=== PATIENT | male | born 1950 | race Caucasian/White ===

== ENCOUNTER 2017-02-18 17:29 | Emergency (ER) | payer OTHER ==
[~2017-02-18] VITALS: Ht 185.4 cm; Wt 134.0 kg
[~2017-02-18 17:29] MED LIST: CANA100T PO; GLIP10TA6 PO; LISI-363 PO; MECL-62 PO; METF500 PO
[2017-02-18 17:36] VITALS: BP 199/84; PULSE 90; RESP 18; TEMP 98; O2SAT 95
[2017-02-18] MEDS ORDERED: CANA100T PO (17:49)
[2017-02-18] MEDS ORDERED: METF500T PO (17:49)
[2017-02-18] MEDS ORDERED: GLIP10TA6 PO (17:49)
[2017-02-18] MEDS ORDERED: LISI-515 PO (17:49)
[2017-02-18] MEDS ORDERED: CLINDAMYCIN INJ 600 MG in SODIUM CHLORIDE 0.9% INJ 100 ML IV ONE (18:15)
[2017-02-18] MEDS ORDERED: MORPHINE SULFATE 8 MG/ML INJ IV PUSH ONE ×2 (18:15→19:45)
--- NOTE | 2017-02-18 18:18 | PD ---
HPI Chief Complaint: Skin Problem Time Seen by Provider: 17:45 Travel History International Travel<30 days: No Contact w/Intl Traveler<30days: No Traveled to known affect area: No History of Present Illness HPI 66yo M with PMH of COPD and DM presents to the ED with c/o pain and swelling in right scrotum. States that it was draining for a few weeks and then stopped draining and for the last few days, became more swollen and very painful. It is also red. Denies any fever, chest pain, sob, n/v, abdominal pain, focal weakness or numbness. Pt is morbidly obese and wheezing but states that he is not sob and does not want treatment. PFSH Past Medical History Asthma: No Blood Disorders: No Anxiety: No Depression: No Heart Rhythm Problems: Yes Cancer: No Cardiovascular Problems: Yes High Cholesterol: Yes Chemotherapy: No Chest Pain: No Congestive Heart Failure: No COPD: No Diabetes: Yes Patient Takes Glucophage: Yes (02-18-17) Diminished Hearing: No Endocrine: Yes Gastrointestinal Disorders: No Genitourinary: No Hypertension: Yes Immune Disorder: No Implanted Vascular Access Dvce: No Musculoskeletal: Yes (SOME PAINS IN JOINTS) Neurologic: Yes (NUMBNESS IN [place]) Psychiatric: No Reproductive: No Respiratory: Yes (COPD) Immunizations Current: No Radiation Therapy: No Sleep Apnea: No Thyroid Disease: No Tetanus Vaccination: > 5 Years Influenza Vaccination: No Past Surgical History Other Surgery: Yes (POLYPS/SOME INTESTINE REMOVED) Social History Alcohol Use: Yes (4 8 OUNCES) Tobacco Use: Yes (4 DAILY) Substance Use: No Allergies-Medications (Allergen,Severity, Reaction): Coded Allergies: No Known Allergies (Unverified , 02/18/17) Reported Meds & Prescriptions Reported Meds & Active Scripts Active Tylenol (Acetaminophen) 325 Mg Tab 650 Mg PO Q6H PRN Clindamycin (Clindamycin HCl) 300 Mg Cap 300 Mg PO Q6H 7 Days Reported Metformin (Metformin HCl) 500 Mg Tab 500 Mg PO BIDPC Lisinopril 20 Mg Tab 20 Mg PO BID Glipizide 10 Mg Tab 10 Mg PO BIDAC Take 30 minutes before a meal Invokana (Canagliflozin) 100 Mg Tab 100 Mg PO DAILY Take before 1st meal of day. Review of Systems Except as stated in HPI: all other systems reviewed are Neg Physical Exam Narrative GENERAL: 66yo M in moderate distress. SKIN: Focused skin assessment warm/dry. HEAD: Atraumatic. Normocephalic. EYES: Pupils equal and round. No scleral icterus. No injection or drainage. ENT: No nasal bleeding or discharge. Mucous membranes pink and moist. NECK: Trachea midline. No JVD. CARDIOVASCULAR: Regular rate and rhythm. No murmur appreciated. RESPIRATORY: No accessory muscle use. End expiratory wheezing. GASTROINTESTINAL: Abdomen soft, non-tender, nondistended. : +Induration in right scrotum about 6cm by 6cm. +TTP. +Fluctuance. No penile rash. No crepitus. MUSCULOSKELETAL: No obvious deformities. No clubbing. No cyanosis. No edema. NEUROLOGICAL: Awake and alert. No obvious cranial nerve deficits. Motor grossly within normal limits. Normal speech. PSYCHIATRIC: Appropriate mood and affect; insight and judgment normal. Data Data Last Documented VS Vital Signs Date Time Temp Pulse Resp B/P (MAP) Pulse Ox O2 Delivery O2 Flow Rate FiO2 02/18/17 19:58 82 20 110/50 (70) 95 02/18/17 17:36 98.0 Orders Orders Complete Blood Count With Diff (02/18/17 18:09) Basic Metabolic Panel (Bmp) (02/18/17 18:09) Lactic Acid Sepsis Protocol (02/18/17 18:09) Prothrombin Time / Inr (Pt) (02/18/17 18:09) Act Partial Throm Time (Ptt) (02/18/17 18:09) Morphine Inj (Morphine Inj) (02/18/17 18:15) Blood Culture (02/18/17 18:09) Clindamycin Inj (Cleocin Inj) (02/18/17 18:15) Lidocaine 1% Inj (50 Ml) (Xylocaine 1% I (02/18/17 19:15) Morphine Inj (Morphine Inj) (02/18/17 19:45) Labs Laboratory Tests Test 02/18/17 18:26 White Blood Count 10.1 TH/MM3 Red Blood Count 4.80 MIL/MM3 Hemoglobin 15.4 GM/DL Hematocrit 46.2 % Mean Corpuscular Volume 96.1 FL Mean Corpuscular Hemoglobin 32.1 PG Mean Corpuscular Hemoglobin Concent 33.4 % Red Cell Distribution Width 12.0 % Platelet Count 175 TH/MM3 Mean Platelet Volume 7.6 FL Neutrophils (%) (Auto) 71.7 % Lymphocytes (%) (Auto) 15.0 % Monocytes (%) (Auto) 6.9 % Eosinophils (%) (Auto) 5.2 % Basophils (%) (Auto) 1.2 % Neutrophils # (Auto) 7.3 TH/MM3 Lymphocytes # (Auto) 1.5 TH/MM3 Monocytes # (Auto) 0.7 TH/MM3 Eosinophils # (Auto) 0.5 TH/MM3 Basophils # (Auto) 0.1 TH/MM3 CBC Comment AUTO DIFF Differential Comment AUTO DIFF CONFIRMED Prothrombin Time 10.8 SEC Prothromb Time International Ratio 1.0 RATIO Activated Partial Thromboplast Time 31.2 SEC Blood Urea Nitrogen 15 MG/DL Creatinine 0.90 MG/DL Random Glucose 172 MG/DL Calcium Level 9.2 MG/DL Sodium Level 131 MEQ/L Potassium Level 4.3 MEQ/L Chloride Level 95 MEQ/L Carbon Dioxide Level 28.5 MEQ/L Anion Gap 8 MEQ/L Estimat Glomerular Filtration Rate 85 ML/MIN Lactic Acid Level 1.3 mmol/L [facility] Medical Decision Making Medical Screen Exam Complete: Yes Emergency Medical Condition: Yes Differential Diagnosis Scrotal abscess Narrative Course 66yo M with right scrotal abscess. Labs reviewed, no leukocytosis. Glucose 172. Mild hyponatremia. Lactic acid 1.3. Pt given morphine 6mg IV and clindamycin 600mg IV. I wanted to do CT a/p to evaluate if the infection is deeper or any other serious types of infection but pt is refusing CT or any other imaging. Pt just wants the abscess drained. I&D was performed and large amounts of purulent discharge expressed. Another 6mg morphine given during procedure. Instructed pt to return in 2 days for packing removal and wound check. Return precautions given. Procedures Procedure Narrative INCISION AND DRAINAGE OF ABSCESS: The area was prepped and was sterilely draped. A subcutaneous wheal of 1 % Xylocaine a total number 4 mL was used to anesthetize the area properly. A number 11 scalpel was used to make a 1 -cm incision across the area of the abscess. The abscess was drained, complex loculations were broken down, and irrigated with normal saline. Cultures were obtained. Quarter inch iodoform packing was placed in the wound. Sterile dressing applied. Patient advised to have packing removed in two days. Diagnosis Primary Impression: Scrotal abscess Patient Instructions: General Instructions Departure Forms: Tests/Procedures Additional Instructions: Please return to the ED in 2 days for wound check and packing removal. Return earlier if symptoms worsen. Med/Other Pt SpecificInfo: Prescription(s) given Scripts Acetaminophen (Tylenol) 325 Mg Tab 650 MG PO Q6H Y for PAIN SCALE 1 TO 4, #20 TAB 0 Refills Prov: Rita Huddleston DO 02/18/17 Clindamycin (Clindamycin) 300 Mg Cap 300 MG PO Q6H for Infection for 7 Days, #28 CAP 0 Refills Prov: Rita Huddleston DO 02/18/17 Disposition: 01 DISCHARGE HOME Condition: Stable Rita Huddleston DO Feb 18, 2017 18:18
[2017-02-18 18:36] LABS: AUTOMATED NEUTROPHIL # 7.3 TH/MM3 (1.8-7.7); BASOPHIL # 0.1 TH/MM3 (0-0.2); BASOPHIL % 1.2 % (0.0-2.0); EOSINOPHIL # 0.5 TH/MM3 (0-0.4); EOSINOPHIL % 5.2 % (0.0-4.0); HEMATOCRIT 46.2 % (39.0-51.0); LYMPHOCYTE # 1.5 TH/MM3 (1.0-4.8); MEAN CELL VOLUME 96.1 FL (80.0-100.0); MEAN CORPUSCULAR HEMOGLOBIN 32.1 PG (27.0-34.0); MEAN CORPUSCULAR HGB CONC 33.4 % (32.0-36.0); MONO % 6.9 % (0.0-8.0); NEUT % 71.7 % (16.0-70.0); PLATELET COUNT 175 TH/MM3 (150-450); WHITE BLOOD COUNT 10.1 TH/MM3 (4.0-11.0)
[2017-02-18 18:45] LABS: POTASSIUM 4.3 MEQ/L (3.5-5.1)
[2017-02-18 18:47] LABS: HEMO FLAGS AUTO DIFF
[2017-02-18 18:48] LABS: BICARBONATE 28.5 MEQ/L (21.0-32.0)
[2017-02-18 18:49] LABS: APTT (PATIENT) 31.2 SEC (24.3-30.1); PROTHROMBIN TIME - PATIENT 10.8 SEC (9.8-11.6)
[2017-02-18 19:04] LABS: SCAN/DIFF AUTO DIFF CONFIRMED
[2017-02-18] MEDS ORDERED: LIDOCAINE HCL 1% 50 ML VIAL INFIL ONE (19:15)
[2017-02-18 19:43] VITALS: RESP 20
[2017-02-18] MEDS ORDERED: CLIN1CAP6 PO (19:49)
[2017-02-18] MEDS ORDERED: TYLE325T PO (19:49)
[2017-02-18 19:58] VITALS: BP 110/50
== END 2017-02-18 20:08 | disposition home or self-care (01) ==
LOC: PHED 17:29
DX: N49.2 Inflammatory disorders of scrotum (principal); E78.00 Pure hypercholesterolemia, unspecified; I10 Essential (primary) hypertension; J44.9 Chronic obstructive pulmonary disease, unspecified; E11.9 Type 2 diabetes mellitus without complications
CPT/HCPCS: 10061; 80048; 83605; 85025; 85610; 85730; 87040; 96365; 96375; 96376; 99283; J2270

== ENCOUNTER 2017-02-20 15:12 | Emergency (ER) | payer OTHER ==
[~2017-02-20] VITALS: Ht 185.4 cm; Wt 133.7 kg
[~2017-02-20 15:12] MED LIST changes: +CLIN1CAP6 PO; -LISI-363 PO; +LISI-515 PO; -MECL-62 PO; -METF500 PO; +METF500T PO; +TYLE325T PO
[2017-02-20 15:19] VITALS: BP 118/75; PULSE 91; RESP 18; TEMP 98.3; O2SAT 97
--- NOTE | 2017-02-20 16:12 | PD ---
HPI Chief Complaint: Wound/Suture/Staple Re-Check Time Seen by Provider: 15:37 Travel History International Travel<30 days: No Contact w/Intl Traveler<30days: No Traveled to known affect area: No History of Present Illness HPI 66-year-old male presents to the emergency room for packing removal. Patient had packing placed in a scrotal abscess after incision and drainage in the emergency room 2 days ago. He was discharged with clindamycin and has been taking it appropriately. States his pain is well-controlled with Tylenol. States he has significantly less pain and swelling than he did 2 days ago. He denies fever, chills, nausea, vomiting. PFSH Past Medical History Asthma: No Blood Disorders: No Anxiety: No Depression: No Heart Rhythm Problems: Yes Cancer: No Cardiovascular Problems: Yes High Cholesterol: Yes Chemotherapy: No Chest Pain: No Congestive Heart Failure: No COPD: No Diabetes: Yes Patient Takes Glucophage: Yes Diminished Hearing: No Endocrine: Yes Gastrointestinal Disorders: No Genitourinary: No Hypertension: Yes Immune Disorder: No Implanted Vascular Access Dvce: No Musculoskeletal: Yes (SOME PAINS IN JOINTS) Neurologic: Yes (NUMBNESS IN [place]) Psychiatric: No Reproductive: No Respiratory: Yes (COPD) Immunizations Current: No Radiation Therapy: No Sleep Apnea: No Thyroid Disease: No ?: Not Past Surgical History Other Surgery: Yes (POLYPS/SOME INTESTINE REMOVED) Social History Alcohol Use: Yes (4 8 OUNCES) Tobacco Use: Yes (4 DAILY) Substance Use: No Allergies-Medications (Allergen,Severity, Reaction): Coded Allergies: No Known Allergies (Unverified , 02/20/17) Reported Meds & Prescriptions Reported Meds & Active Scripts Active Tylenol (Acetaminophen) 325 Mg Tab 650 Mg PO Q6H PRN Clindamycin (Clindamycin HCl) 300 Mg Cap 300 Mg PO Q6H 7 Days Reported Metformin (Metformin HCl) 500 Mg Tab 500 Mg PO BIDPC Lisinopril 20 Mg Tab 20 Mg PO BID Glipizide 10 Mg Tab 10 Mg PO BIDAC Take 30 minutes before a meal Invokana (Canagliflozin) 100 Mg Tab 100 Mg PO DAILY Take before 1st meal of day. Review of Systems Except as stated in HPI: all other systems reviewed are Neg Physical Exam Narrative GENERAL: Well-nourished, well-developed male in no acute distress. Afebrile. Ambulatory. SKIN: Focused skin assessment warm/dry. HEAD: Normocephalic. EYES: No scleral icterus. No injection or drainage. NECK: Supple, trachea midline. No JVD or lymphadenopathy. CARDIOVASCULAR: Regular rate and rhythm without murmurs, gallops, or rubs. RESPIRATORY: Breath sounds equal bilaterally. No accessory muscle use. GENITOURINARY: Examined in the presence of a nurse. Testes descended bilaterally without evidence of rotation. There is mild edema of the right, lateral scrotum with packing in place. There is moderate purulent drainage and tenderness to palpation of the area. No surrounding erythema. Data Data Last Documented VS Vital Signs Date Time Temp Pulse Resp B/P (MAP) Pulse Ox O2 Delivery O2 Flow Rate FiO2 02/20/17 15:19 98.3 91 18 118/75 (89) 97 MDM Medical Decision Making Medical Screen Exam Complete: Yes Emergency Medical Condition: Yes Medical Record Reviewed: Yes Differential Diagnosis Abscess, foreign body, packing removal Narrative Course 66-year-old male presents to the emergency room for packing removal. Patient had packing placed after an incision and drainage in his scrotum 2 days ago. Reports significant improvement in symptoms. No systemic signs of infection. He is afebrile and well-appearing in the emergency room. Physical exam reveals mild induration and tenderness to palpation of the right scrotal area with packing in place. There is moderate purulent drainage. I had my attending physician, Dr. Gomez, evaluate the scrotum and he agrees patient is stable for outpatient follow-up. Patient was told to continue taking clindamycin and start sitz baths twice daily until symptoms resolve. Told to follow up with his primary care physician for recheck in a few days. He understands and agrees to plan. Diagnosis Primary Impression: Scrotal abscess Referrals: Primary Care Physician Urologist Additional Instructions: Rest and drink plenty of fluids. Continue clindamycin as directed, until gone. Continue Tylenol as directed, as needed for pain. Sit in warm, clean baths for 30 minutes at a time, several times daily. Follow up with a primary care physician for recheck within 1 week. Return to emergency room for worsening symptoms, as discussed. Disposition: 01 DISCHARGE HOME Condition: Stable Anna Gomez Feb 20, 2017 16:12
== END 2017-02-20 16:21 | disposition home or self-care (01) ==
LOC: PHED 15:12
DX: N49.2 Inflammatory disorders of scrotum (principal); Z48.00 Encounter for change or removal of nonsurgical wound dressing
CPT/HCPCS: 99281